=== PATIENT | male | born 1935 | race African-American/Black ===

== ENCOUNTER 2024-03-12 21:20 | Inpatient (IN) | payer OTHER ==
[~2024-03-12] VITALS: Ht 188 cm; Wt 93.0 kg
[2024-03-12] MEDS ORDERED: FUROSEMIDE 40MG/4ML VIAL IV ONE (22:45)
[2024-03-12] MEDS: FUROSEMIDE 40MG/4ML VIAL IV NR (22:48)
[2024-03-12 23:58] LABS: BASOPHILS % 0.5 % (0.0-2.0); EOSINOPHILS % 2.3 % (0.0-5.0); HEMATOCRIT. 30.5 % (42.0-52.0); HEMOGLOBIN. 9.7 g/dL (14.0-18.0); LYMPHOCYTES % 9.6 % (20.0-50.0); MEAN CORPUSCULAR HEMOGLOBIN 29.4 pg (28.0-32.0); MEAN CORPUSCULAR HGB CONC 31.9 g/dL (31.0-37.0); MEAN CORPUSCULAR VOLUME 92.2 fL (80.0-94.0); MEAN PLATELET VOLUME 7.9 fl (7.4-10.4); MONOCYTES % 9.7 % (2.0-8.0); NEUTROPHILS % 77.9 % (40.0-76.0); PLATELET 176 x1000/uL (130-400); RED BLOOD CELL COUNT 3.31 mill/uL (4.7-6.1); RED CELL DISTRIBUTION WIDTH 22.8 % (11.6-14.6); WHITE BLOOD COUNT 7.8 x1000/uL (4.5-11.0)
[2024-03-13 00:10] LABS: ADD RBC MORPHOLOGY YES; DIFFERENTIAL COMMENT 1
[2024-03-13 01:39] LABS: CHLORIDE 112 mEq/L (98-107); POTASSIUM 4.7 mEq/L (3.5-5.1); SODIUM 142 mEq/L (136-145)
[2024-03-13 01:40] LABS: CALCIUM 9.1 mg/dL (8.7-10.4); CARBON DIOXIDE 24 mEq/L (21-32)
[2024-03-13 01:45] LABS: CREATININE 1.7 mg/dL (0.6-1.3); GLUCOSE 130 mg/dL (70-105); UREA NITROGEN BLOOD 22 mg/dL (9-23)
[2024-03-13] MEDS ORDERED: ACETAMINOPHEN 325MG TABLET PO PRN (01:45)
[2024-03-13] MEDS ORDERED: CLONIDINE 0.1MG TABLET PO PRN (01:45)
[2024-03-13] MEDS ORDERED: ZOLPIDEM TARTRATE 5MG TABLET PO PRN (01:45)
[2024-03-13] MEDS ORDERED: ONDANSETRON HCL 4MG/2ML INJ IV PRN (01:45)
[2024-03-13 01:46] LABS: TROPONIN I HIGH SENSITIVITY 33 ng/L (3.0-53)
[2024-03-13 04:36] LABS: TROPONIN I HIGH SENSITIVITY 35 ng/L (3.0-53)
[2024-03-13 04:37] LABS: ANISOCYTOSIS 1+; PLATELET ESTIMATE 1
[2024-03-13] MEDS: SODIUM CHLORIDE 0.9% 3ML FLUSH IVF SCH (06:00)
[2024-03-13] MEDS ORDERED: IOHEXOL-350 100 ML BOTTLE ONE (06:01)
[2024-03-13 06:15] VITALS: BP 140/92; PULSE 102; RESP 20; TEMP 36.114; TEMP 36.14
[2024-03-13 08:00] VITALS: BP 132/81; PULSE 72; RESP 16; TEMP 36.72516; O2SAT 98
[2024-03-13] MEDS: FUROSEMIDE 40MG/4ML VIAL IVP SCH (08:25)
[2024-03-13] MEDS: ENOXAPARIN 40MG/0.4ML SYR SUBCUT SCH (08:25)
[2024-03-13] MEDS: CARVEDILOL 6.25 MG TABLET PO SCH (08:26)
[2024-03-13] MEDS: LOSARTAN 25 MG TABLET PO SCH (08:26)
[2024-03-13] MEDS ORDERED: APIX5TAB PO (09:04)
[2024-03-13] MEDS ORDERED: APIX2.5T PO (09:38)
[2024-03-13] MEDS ORDERED: CARV6.2548 PO (09:38)
[2024-03-13] MEDS ORDERED: SITA25TA3 PO (09:45)
[2024-03-13] MEDS ORDERED: FLUT15.844 BOTHNSTRLS (09:45)
[2024-03-13] MEDS ORDERED: TRAM50TA3 PO (09:45)
[2024-03-13] MEDS ORDERED: FINA5TAB11 PO (09:45)
[2024-03-13] MEDS ORDERED: LISI-186 PO (09:45)
[2024-03-13] MEDS ORDERED: ATOR40TA70 PO (09:45)
[2024-03-13] MEDS ORDERED: BRIM10DR18 (09:45)
[2024-03-13] MEDS ORDERED: LOSA25TA26 PO (09:45)
[2024-03-13 10:37] LABS: TROPONIN I HIGH SENSITIVITY 36 ng/L (3.0-53)
[2024-03-13 12:00] VITALS: BP 118/74; PULSE 78; RESP 18; TEMP 36.61404; O2SAT 98
[2024-03-13 16:00] VITALS: BP 123/68; PULSE 69; RESP 16; TEMP 36.9474; O2SAT 98
[2024-03-13 17:20] LABS: TROPONIN I HIGH SENSITIVITY 34 ng/L (3.0-53)
[2024-03-13 20:00] VITALS: BP 144/95; PULSE 90; RESP 20; TEMP 36.22512; O2SAT 96
[2024-03-13] MEDS: AMLODIPINE 2.5MG TABLET PO SCH (20:57)
[2024-03-13] MEDS: FUROSEMIDE 40MG/4ML VIAL IVP NR (22:16)
[2024-03-14] VITALS: BP 138/72; PULSE 102; RESP 18; TEMP 36.00288; O2SAT 96
[2024-03-14 04:00] VITALS: BP 141/78; PULSE 90; RESP 16; TEMP 36.33624; O2SAT 99
[2024-03-14 08:00] VITALS: BP 155/87; PULSE 92; RESP 16; TEMP 36.72516; O2SAT 98
[2024-03-14 08:16] LABS: POTASSIUM 4.6 mEq/L (3.5-5.1)
[2024-03-14 08:17] LABS: CALCIUM 9.5 mg/dL (8.7-10.4)
[2024-03-14 08:23] LABS: CREATININE 1.9 mg/dL (0.6-1.3)
[2024-03-14 08:31] LABS: BASOPHILS % 0.4 % (0.0-2.0); HEMATOCRIT. 30.6 % (42.0-52.0); LYMPHOCYTES % 12.5 % (20.0-50.0); MEAN CORPUSCULAR HGB CONC 32.6 g/dL (31.0-37.0); MEAN CORPUSCULAR VOLUME 89.2 fL (80.0-94.0); MEAN PLATELET VOLUME 8.6 fl (7.4-10.4); MONOCYTES % 11.4 % (2.0-8.0); NEUTROPHILS % 73.7 % (40.0-76.0); PLATELET 182 x1000/uL (130-400); RED BLOOD CELL COUNT 3.43 mill/uL (4.7-6.1); RED CELL DISTRIBUTION WIDTH 22.5 % (11.6-14.6); WHITE BLOOD COUNT 7.1 x1000/uL (4.5-11.0)
[2024-03-14 08:32] LABS: DIFFERENTIAL COMMENT 1
[2024-03-14 08:33] LABS: ADD RBC MORPHOLOGY NO
[2024-03-14 12:00] VITALS: BP 133/75; PULSE 87; RESP 16; TEMP 36.89184; O2SAT 98
[2024-03-14 16:00] VITALS: BP 137/79; PULSE 88; RESP 15; TEMP 36.9474; O2SAT 96
[2024-03-14 20:00] VITALS: BP 122/87; PULSE 94; RESP 20; TEMP 36.33624; O2SAT 96
[2024-03-14] MEDS: CARVEDILOL 12.5MG TABLET PO SCH (20:52)
[2024-03-15] VITALS: BP 133/81; PULSE 84; RESP 18; TEMP 36.16956; O2SAT 96
[2024-03-15 04:00] VITALS: BP 125/60; PULSE 86; RESP 16; TEMP 36.33624; O2SAT 97
[2024-03-15 08:00] VITALS: BP 126/74; PULSE 82; RESP 20; TEMP 36.50292; O2SAT 99
[2024-03-15] MEDS: ACETAMINOPHEN 325MG TABLET PO PRN (09:19)
[2024-03-15 12:00] VITALS: BP_SYST 106; BP_SYST 110; BP_DIAS 57; BP_DIAS 61; PULSE 71; PULSE 74; RESP 18; RESP 20; TEMP 36.6696; O2SAT 98
[2024-03-15 20:00] VITALS: BP 120/57; PULSE 77; RESP 18; TEMP 36.72516; O2SAT 98
[2024-03-16] VITALS (7 sets, daily range): BP systolic 100–128; BP diastolic 53–70; PULSE 74–80; RESP 16–20; TEMP 36.3918–37.00296; O2SAT 96–98
[2024-03-16] MEDS: APIXABAN 2.5 MG TABLET PO SCH (09:31)
[2024-03-17] VITALS: BP 129/66; PULSE 80; RESP 16; TEMP 36.33624; O2SAT 98
[2024-03-17 04:00] VITALS: BP 138/82; PULSE 91; RESP 18; TEMP 36.78072; O2SAT 98
[2024-03-17 08:00] VITALS: BP 128/65; PULSE 81; RESP 20; TEMP 36.50292; O2SAT 97
[2024-03-17 09:02] VITALS: PULSE 89
== END 2024-03-17 12:14 | disposition home health service (06) | DRG 291 ==
LOC: ER 21:20 → 8WST 03-13 00:28 → EDBEDREQDT 03-13 00:39 → EDBEDREQTM 03-13 00:39 → EDBEDREQ 03-13 00:39
PROVIDERS: ADMIT Internal Medicine; ATTEND Internal Medicine
DX: I11.0 Hypertensive heart disease with heart failure (principal); I50.43 Acute on chronic combined systolic (congestive) and diastolic (congestive) heart failure; I48.20 Chronic atrial fibrillation, unspecified; D63.8 Anemia in other chronic diseases classified elsewhere; I50.82 Biventricular heart failure; I08.3 Combined rheumatic disorders of mitral, aortic and tricuspid valves; N28.9 Disorder of kidney and ureter, unspecified; E11.9 Type 2 diabetes mellitus without complications; Z95.810 Presence of automatic (implantable) cardiac defibrillator; Z79.01 Long term (current) use of anticoagulants; Z85.038 Personal history of other malignant neoplasm of large intestine
CPT/HCPCS: 36415; 71045; 71275; 74174; 80048; 83735; 83880; 84484; 85025; 93005; 93306; 97162; 97530; 99285; J1650; J1940; Q9967